=== PATIENT | female | born 1970 | race Caucasian/White ===

== ENCOUNTER → 2018-09-30 | Outpatient (CLI) | payer OTHER | END | disposition home or self-care (01) | LOC: CFH 07:01 | PROVIDERS: ATTEND Orthopaedic Surgery | DX: S83.241A Other tear of medial meniscus, current injury, right knee, initial encounter (principal); S83.001A Unspecified subluxation of right patella, initial encounter; R60.0 Localized edema; M94.261 Chondromalacia, right knee; X58.XXXA Exposure to other specified factors, initial encounter; Y93.89 Activity, other specified; Y92.89 Other specified places as the place of occurrence of the external cause; Y99.8 Other external cause status ==

== ENCOUNTER 2018-11-06 13:28 | Day surgery (SDC) | payer OTHER ==
[2018-11-04 13:35] VITALS: BP 137/94
[~2018-11-06] VITALS: Ht 165.1 cm; Wt 116.9 kg
[~2018-11-06 13:28] MED LIST: BUPIVACAINE/PF-EPI 0.5% 1:200K ONE; CALC3.7S5 NAS; CEFAZOLIN 1,000 MG ONE; DEXAMETHASONE 4 MG/ML, 1ML ONE; GARL500T3 PO; GLUC15006 PO; LIDOCAINE 1%-EPI 1:100K, 30ML ONE; ONDANSETRON 2MG/ML, 2ML ONE; PROPOFOL 10 MG/ML, 20ML ONE; SALM1CAP2 PO; THYR65TA2 PO; TOPI25TA8 PO; TOTAL RESTORE; TURM1POW2 PO
[2018-11-06] MEDS ORDERED: LACTATED RINGERS 1,000 ML IV SCH (13:50)
[2018-11-06 14:26] LABS: HCG UR SG 1.026 (1.003-1.030)
[2018-11-06] MEDS ORDERED: MIDAZOLAM 1 MG/ML, 2ML ONE (16:04)
[2018-11-06] MEDS ORDERED: FENTANYL PF 100 MCG/2ML ONE ×2 (16:05→16:47)
[2018-11-06] MEDS ORDERED: KETOROLAC 30 MG/1 ML IV PRN (16:30)
[2018-11-06] MEDS ORDERED: DIAZEPAM 5 MG/ML, 2ML IVPush PRN (16:30)
[2018-11-06] MEDS ORDERED: LABETALOL 5MG/ML, 20ML IV PRN (16:30)
[2018-11-06] MEDS ORDERED: MEPERIDINE/PF 25MG/0.5ML IVPush PRN (16:30)
[2018-11-06] MEDS ORDERED: PROMETHAZINE 25 MG/ML, 1ML IV PRN (16:30)
[2018-11-06] MEDS ORDERED: hydrALAzine 20 MG/ML, 1ML IV PRN (16:30)
[2018-11-06] MEDS ORDERED: ACETAMINOPHEN 325 MG TABLET PO PRN (16:30)
[2018-11-06] MEDS ORDERED: HYDROmorphone 2 MG/ML, 1ML IVPush PRN (16:30)
[2018-11-06] MEDS ORDERED: ALBUTEROL SULFATE 2.5 MG/3 ML NPPB PRN (16:30)
[2018-11-06] MEDS ORDERED: OXYcodone 5 MG/5 ML ORAL.SOL UDC ONE (16:47)
[2018-11-06] MEDS ORDERED: ACETAMINOPHEN 650 MG/20.3 ML UDC ONE (16:47)
[2018-11-06] MEDS: OXYcodone 5 MG/5 ML ORAL.SOL UDC PO PRN ×2 (16:50→17:11)
[2018-11-06] MEDS: FENTANYL PF 100 MCG/2ML IV PRN ×2 (16:55→17:13)
[2018-11-06] MEDS ORDERED: KETOROLAC 30 MG/1 ML ONE (17:17)
[2018-11-06 18:46] VITALS: BP 130/70
== END 2018-11-06 20:00 | disposition home or self-care (01) ==
LOC: OR 13:28 → 4NOR 17:59 → OR 20:00
PROVIDERS: ATTEND Orthopaedic Surgery
DX: S83.231A Complex tear of medial meniscus, current injury, right knee, initial encounter (principal); S83.281A Other tear of lateral meniscus, current injury, right knee, initial encounter; M94.261 Chondromalacia, right knee; E66.01 Morbid (severe) obesity due to excess calories; Z68.41 Body mass index [BMI] 40.0-44.9, adult; Z72.89 Other problems related to lifestyle; X58.XXXA Exposure to other specified factors, initial encounter; Y93.89 Activity, other specified; Y92.89 Other specified places as the place of occurrence of the external cause; Y99.8 Other external cause status
CPT/HCPCS: 29880; 81025; J0690; J1100; J1885; J2250; J2405; J2704; J3010; J3490; G0378

== ENCOUNTER 2019-03-26 09:50 | Day surgery (SDC) | payer OTHER ==
[2019-03-25 10:59] LABS: BASOPHILS # (AUTO) 0.02 x10^3/uL (0-0.1); BASOPHILS % (AUTO) 0 % (0-1); EOSINOPHILS # (AUTO) 0.03 x10^3/uL (0-0.4); EOSINOPHILS % (AUTO) 1 % (1-7); LYMPHOCYTES # (AUTO) 2.12 x10^3/uL (1-3.4); LYMPHOCYTES % (AUTO) 40 % (22-44); MD NO; MEAN CORPUSCULAR HEMOGLOBIN 26.4 pg (27.0-34.8); MEAN CORPUSCULAR HGB CONC 32.3 g/dL (32.4-35.8); MEAN CORPUSCULAR VOLUME 81.7 fL (80-100); MEAN PLATELET VOLUME 7.9 fL (7.4-10.4); MONOCYTES # (AUTO) 0.44 x10^3/uL (0.2-0.8); MONOCYTES % (AUTO) 8 % (2-9); NEUTROPHILS # (AUTO) 2.72 x10^3/uL (1.8-6.8); NEUTROPHILS % (AUTO) 51 % (42-75); PLATELET COUNT 262 x10^3/uL (130-400); RED BLOOD COUNT 4.58 x10^6/uL (3.82-5.3)
[2019-03-25 12:10] LABS: HCG UR SG 1.013 (1.003-1.030); MICROSCOPIC NOT IND
[2019-03-25 12:12] LABS: CULTURE INDICATED? NO
[~2019-03-26] VITALS: Ht 165.1 cm; Wt 114.0 kg
[~2019-03-26 09:50] MED LIST changes: +BIRTH CONTROL; -BUPIVACAINE/PF-EPI 0.5% 1:200K ONE; -CEFAZOLIN 1,000 MG ONE; -DEXAMETHASONE 4 MG/ML, 1ML ONE; +DIPHENHYDRAMINE 50 MG/ML, 1ML IVPush PRN; +HALOPERIDOL 5 MG/ML IV PRN; +LABETALOL 5MG/ML, 20ML IV PRN; -LIDOCAINE 1%-EPI 1:100K, 30ML ONE; +MEPERIDINE/PF 25MG/0.5ML IVPush PRN; +METOPROLOL 1 MG/ML, 5ML IV PRN; +OMEGA 3 FATTY ACIDS PO; -ONDANSETRON 2MG/ML, 2ML ONE; +OXYcodone 5 MG/5 ML ORAL.SOL UDC PO PRN; +PROCHLORPERAZINE 5 MG/ML, 2ML IV PRN; +PROMETHAZINE 25 MG/ML, 1ML IV PRN; -PROPOFOL 10 MG/ML, 20ML ONE; +[UNRECOGNIZED DRUG - OTHER] PO; +[UNRECOGNIZED DRUG - OTHER] PO; +hydrALAzine 20 MG/ML, 1ML IV PRN
[2019-03-26] MEDS ORDERED: LACTATED RINGERS 1,000 ML IV SCH (10:10)
[2019-03-26 10:28] VITALS: BP 161/97
[2019-03-26] MEDS ORDERED: OxyconTIN ER 10 MG TAB.ER PO ONE (10:30)
[2019-03-26] MEDS ORDERED: ACETAMINOPHEN 500 MG TABLET PO ONE ×2 (10:30→16:30)
[2019-03-26] MEDS ORDERED: FENTANYL PF 100 MCG/2ML ONE ×2 (10:57→12:20)
[2019-03-26] MEDS ORDERED: BUPIVACAINE/PF 0.25% ONE (11:17)
[2019-03-26] MEDS ORDERED: SILVER NITRATE STICK TP ONE (11:17)
[2019-03-26] MEDS ORDERED: EPINEPHRINE 1 MG/ML, 1ML ONE (11:17)
[2019-03-26] MEDS ORDERED: KETOROLAC 30 MG/1 ML ONE (11:26)
[2019-03-26] MEDS ORDERED: ONDANSETRON 2MG/ML, 2ML ONE (12:05)
[2019-03-26] MEDS ORDERED: CEFAZOLIN 1,000 MG ONE (12:05)
[2019-03-26] MEDS ORDERED: DEXAMETHASONE 4 MG/ML, 1ML ONE (12:05)
[2019-03-26] MEDS ORDERED: PROPOFOL 10 MG/ML, 20ML ONE (12:05)
[2019-03-26] MEDS: FENTANYL PF 100 MCG/2ML IV PRN ×2 (12:23→12:30)
[2019-03-26] MEDS ORDERED: HYDROmorphone 2 MG/ML, 1ML ONE (12:38)
[2019-03-26] MEDS: HYDROmorphone 2 MG/ML, 1ML IVPush PRN ×3 (12:40→13:05)
[2019-03-26] MEDS ORDERED: PROMETHAZINE 25 MG/ML, 1ML ONE (12:44)
[2019-03-26] MEDS ORDERED: ACETAMINOPHEN 325 MG TABLET ONE (16:04)
[2019-03-26] MEDS ORDERED: KETOROLAC 30 MG/1 ML IM ONE (17:00)
== END 2019-03-26 18:40 | disposition home or self-care (01) ==
LOC: OUT 09:50
PROVIDERS: ATTEND Obstetrics & Gynecology
DX: D25.9 Leiomyoma of uterus, unspecified (principal); E03.9 Hypothyroidism, unspecified; E66.01 Morbid (severe) obesity due to excess calories; Z68.41 Body mass index [BMI] 40.0-44.9, adult; Z79.890 Hormone replacement therapy; Z79.899 Other long term (current) drug therapy; Z91.048 Other nonmedicinal substance allergy status; Z98.890 Other specified postprocedural states; Z83.3 Family history of diabetes mellitus; Z82.49 Family history of ischemic heart disease and other diseases of the circulatory system
CPT/HCPCS: 36415; 58563; 81003; 81025; 85025; 93005; J0171; J0690; J1100; J1170; J1885; J2405; J2550; J2704; J3010; J3490; J7120